=== PATIENT | female | born 1955 | race Caucasian/White ===

== ENCOUNTER → 2019-11-12 | Outpatient (CLI) | payer MEDICARE | END | disposition home or self-care (01) | LOC: CARD 09:06 | PROVIDERS: ATTEND Internal Medicine Cardiovascular Disease | DX: J44.9 Chronic obstructive pulmonary disease, unspecified (principal); I10 Essential (primary) hypertension; R06.02 Shortness of breath | CPT/HCPCS: 94060; 94726; 94729 ==

== ENCOUNTER → 2019-12-10 | Outpatient (CLI) | payer MEDICARE ==
[~2019-12-10] MED LIST: REGADENOSON 0.4 MG/5 ML SYRINGE ONE
== END | disposition home or self-care (01) ==
LOC: CFH 06:37
PROVIDERS: ATTEND Internal Medicine Cardiovascular Disease
DX: I36.1 Nonrheumatic tricuspid (valve) insufficiency (principal); R06.02 Shortness of breath; I10 Essential (primary) hypertension; I25.89 Other forms of chronic ischemic heart disease; F43.9 Reaction to severe stress, unspecified
CPT/HCPCS: 78452; 93017; 93306; 93356; A9502; J2785

== ENCOUNTER 2020-05-26 08:45 | Day surgery (SDC) | payer MEDICARE ==
[~2020-05-26] VITALS: Ht 172.7 cm; Wt 83.2 kg
[2020-05-26] MEDS ORDERED: DIPHENHYDRAMINE 50 MG/ML, 1ML ONE (08:58)
[2020-05-26] MEDS ORDERED: SODIUM CHLORIDE 0.9% 1,000 ML IV SCH ×2 (09:04→11:30)
[2020-05-26] MEDS ORDERED: DIPHENHYDRAMINE 50 MG/ML, 1ML IVPush ONE (09:30)
[2020-05-26 09:36] VITALS: BP 124/77
[2020-05-26] MEDS ORDERED: ALPH300C PO (09:53)
[2020-05-26] MEDS ORDERED: ATOR20TA37 PO (09:53)
[2020-05-26] MEDS ORDERED: METF500T17 PO (09:53)
[2020-05-26] MEDS ORDERED: LACT1CAP35 PO (09:53)
[2020-05-26] MEDS ORDERED: APIX5TAB PO (09:53)
[2020-05-26] MEDS ORDERED: MILK500C PO (09:53)
[2020-05-26] MEDS ORDERED: KRIL1CAP31 PO (09:53)
[2020-05-26] MEDS ORDERED: Cranberry PO (09:53)
[2020-05-26] MEDS ORDERED: IPRA3AMP30 INH (09:53)
[2020-05-26] MEDS ORDERED: CHOL2000 PO (09:53)
[2020-05-26] MEDS ORDERED: AMLO5TAB10 PO (09:53)
[2020-05-26] MEDS ORDERED: VIT1CAPS42 PO (09:53)
[2020-05-26] MEDS ORDERED: BENA20TA54 PO (09:53)
[2020-05-26] MEDS ORDERED: TIOT18CA INH (09:53)
[2020-05-26] MEDS ORDERED: BIOT25005 PO (09:53)
[2020-05-26 09:55] LABS: ANION GAP 4 mmol/L (5-15); CALCIUM 9.5 mg/dL (8.5-10.1); CHLORIDE 107 mmol/L (98-107); CREATININE 0.61 mg/dL (0.55-1.02)
[2020-05-26 09:59] LABS: BASOPHILS # (AUTO) 0.03 x10^3/uL (0-0.1); BASOPHILS % (AUTO) 0 % (0-1); EOSINOPHILS # (AUTO) 0.08 x10^3/uL (0-0.4); EOSINOPHILS % (AUTO) 1 % (1-7); LYMPHOCYTES # (AUTO) 1.12 x10^3/uL (1-3.4); LYMPHOCYTES % (AUTO) 14 % (22-44); MD NO; MEAN CORPUSCULAR HEMOGLOBIN 34.5 pg (27.0-34.8); MEAN CORPUSCULAR HGB CONC 32.5 g/dL (32.4-35.8); MEAN CORPUSCULAR VOLUME 106.1 fL (80-100); MEAN PLATELET VOLUME 8.3 fL (7.4-10.4); MONOCYTES # (AUTO) 0.65 x10^3/uL (0.2-0.8); MONOCYTES % (AUTO) 8 % (2-9); NEUTROPHILS # (AUTO) 6.32 x10^3/uL (1.8-6.8); NEUTROPHILS % (AUTO) 77 % (42-75); PLATELET COUNT 223 x10^3/uL (130-400); RED BLOOD COUNT 4.28 x10^6/uL (3.82-5.3); RED CELL DISTRIBUTION WIDTH 16.3 % (9.6-15.2)
[2020-05-26] MEDS ORDERED: FENTANYL PF 100 MCG/2ML ONE (10:03)
[2020-05-26] MEDS ORDERED: MIDAZOLAM 1 MG/ML, 5ML ONE (10:03)
[2020-05-26 10:04] LABS: PROTHROMBIN TIME 10.3 Seconds (9.6-11.5)
[2020-05-26] MEDS ORDERED: BIVALIRUDIN 250 MG ONE (10:04)
[2020-05-26] MEDS ORDERED: LIDOCAINE-MPF 1%, 5ML ONE (10:04)
[2020-05-26] MEDS ORDERED: VERAPAMIL 2.5 MG/ML, 2ML ONE (10:04)
[2020-05-26] MEDS ORDERED: TICAGRELOR 90 MG TABLET ONE (10:04)
[2020-05-26] MEDS ORDERED: HEPARIN 1,000 UNITS/ML, 10ML ONE (10:04)
== END 2020-05-26 16:31 | disposition home or self-care (01) ==
LOC: CACL 08:45
PROVIDERS: ATTEND Internal Medicine Cardiovascular Disease
DX: R94.39 Abnormal result of other cardiovascular function study (principal); I20.0 Unstable angina; I10 Essential (primary) hypertension; E11.9 Type 2 diabetes mellitus without complications; J44.9 Chronic obstructive pulmonary disease, unspecified; E78.2 Mixed hyperlipidemia; F17.210 Nicotine dependence, cigarettes, uncomplicated; Z79.01 Long term (current) use of anticoagulants; Z79.84 Long term (current) use of oral hypoglycemic drugs; Z79.899 Other long term (current) drug therapy; Z86.718 Personal history of other venous thrombosis and embolism; Z86.711 Personal history of pulmonary embolism; Z91.018 Allergy to other foods; Z98.890 Other specified postprocedural states; Z99.81 Dependence on supplemental oxygen
CPT/HCPCS: 36415; 80048; 85025; 85610; 93458; 99156; 99157; C1769; C1894; J1200; J2250; J3010; Q9967; J0583; J1644